=== PATIENT | female | born 1970 | race Caucasian/White ===

== ENCOUNTER → 2024-05-03 08:53 | Outpatient (CLI) | payer OTHER, SELFPAY | PROVIDERS: Referring Provider Naturopath; Visit Provider Surgery | DX: S81.802A Unspecified open wound, left lower leg, initial encounter (principal); L98.8 Other specified disorders of the skin and subcutaneous tissue; L53.9 Erythematous condition, unspecified; R60.0 Localized edema | CPT/HCPCS: 11042; 87070; 87075; 87077; 87186; 87205; 99203; 99214 ==

== ENCOUNTER → 2024-05-10 10:15 | Outpatient (CLI) | payer OTHER, SELFPAY | LOC: WC 10:16 | PROVIDERS: Referring Provider Naturopath; Visit Provider Surgery | DX: S81.802A Unspecified open wound, left lower leg, initial encounter (principal); L98.8 Other specified disorders of the skin and subcutaneous tissue; R60.0 Localized edema; L53.9 Erythematous condition, unspecified | CPT/HCPCS: 11042 ==

== ENCOUNTER → 2024-05-16 10:14 | Outpatient (CLI) | payer OTHER, SELFPAY | LOC: WC 10:30 | PROVIDERS: Referring Provider Naturopath; Visit Provider Surgery | DX: S81.802A Unspecified open wound, left lower leg, initial encounter (principal); L98.8 Other specified disorders of the skin and subcutaneous tissue; R60.0 Localized edema; L53.9 Erythematous condition, unspecified | CPT/HCPCS: 11042 ==

== ENCOUNTER → 2024-05-23 11:21 | Outpatient (CLI) | payer OTHER, SELFPAY | PROVIDERS: Referring Provider Naturopath; Visit Provider Surgery | DX: S81.802A Unspecified open wound, left lower leg, initial encounter (principal); L98.8 Other specified disorders of the skin and subcutaneous tissue; R60.0 Localized edema; L53.9 Erythematous condition, unspecified | CPT/HCPCS: 11042 ==